=== PATIENT | female | born 1950 | race Caucasian/White ===

== ENCOUNTER → 2017-07-22 | Outpatient (CLI) | payer MEDICARE, OTHER | LOC: M.RAD 13:09 | DX: M17.0 Bilateral primary osteoarthritis of knee (principal); M25.761 Osteophyte, right knee; M25.762 Osteophyte, left knee ==

== ENCOUNTER → 2017-10-10 | Outpatient (CLI) | payer MEDICARE, OTHER | LOC: M.RAD 14:20 | DX: Z12.31 Encounter for screening mammogram for malignant neoplasm of breast (principal) ==

== ENCOUNTER → 2017-10-23 | Outpatient (CLI) | payer MEDICARE, OTHER | LOC: M.RAD 13:28 | DX: Z13.820 Encounter for screening for osteoporosis (principal); Z78.0 Asymptomatic menopausal state ==

== ENCOUNTER → 2018-02-19 | Emergency (ER) | payer MEDICARE, OTHER ==
[~2018-02-19] VITALS: Ht 167.6 cm; Wt 77.1 kg
[~2018-02-19] MED LIST: ALLEGRA ALLERG180 MG PO; ASPIR 8181 MG PO; COLESTIPOL HCL1 G1 PO; ESTROVEN 155 M155 MG PO; LISINOPRIL10 MG PO; NORCO 5-325 TA1 EACH PO; TUMS PO; VITAMIN D3400 UNIT PO; ZOFRAN ODT4 MG PO
[2018-02-19 18:49] VITALS: BP 148/81
== END ==
LOC: M.ERS 16:40
DX: R04.0 Epistaxis (principal); Z88.8 Allergy status to other drugs, medicaments and biological substances

== ENCOUNTER → 2018-11-20 | Outpatient (CLI) | payer MEDICARE, OTHER | LOC: M.RAD 14:56 | DX: Z12.31 Encounter for screening mammogram for malignant neoplasm of breast (principal) ==

== ENCOUNTER → 2019-12-21 | Outpatient (CLI) | payer MEDICARE, OTHER | LOC: M.RAD 12-16 15:10 | PROVIDERS: ATTEND Family Medicine | DX: Z12.31 Encounter for screening mammogram for malignant neoplasm of breast (principal) ==

== ENCOUNTER → 2020-06-21 | Outpatient (CLI) | payer MEDICARE, OTHER ==
--- NOTE | 2020-06-23 09:26 | TST ---
[place] [address] T[employer]MI[facility] STRESS TEST Name: AURORA FRAZIER Room: [facility]#: [id number] Admission: 06/21/20 Attend Phys: Dasha Cloud DO Discharge: Date of : 46 Date of Service: 06/21/20 1647 Report #: [id number] THIS REPORT FOR: cc: Dasha Cloud Maggie M. DO Liston, Michael J. MD [facility] ~ DOC #: [id number] cc: Dasha Watson MD DATE OF SERVICE: 06/21/2020 TEST: Standard Cortez protocol exercise stress test. INDICATION: Dyspnea, palpitations, chronic fatigue, prediabetes and pending surgery. CARDIAC RISK FACTORS: Age greater than 55, hyperlipidemia, hypertension, family history of coronary artery disease. CARDIAC MEDICATIONS: Lisinopril, Livalo, colestipol. The patient exercised per standard Cortez protocol for a total of 4 minutes and 59 seconds. The patient achieved 120% of maximum predicted heart rate and then energy expenditure equivalent to 7.03 METs. The resting heart rate was 67 beats per minute with a resting blood pressure of 155/93 mmHg. Peak heart rate was 179 beats per minute with a peak stress blood pressure of 219/94 mmHg. Recovery heart rate was 94 beats per minute with recovery blood pressure of 156/84 mmHg. Exercise was stopped due to achievement of target heart rate. The patient denied any significant chest discomfort with exercise. The baseline 12-lead EKG shows sinus rhythm without significant ST segment or T-wave abnormality. EKGs obtained during and post-exercise shows sinus rhythm and sinus tachycardia with no significant ST segment or T-wave changes when compared to baseline. There were occasional unifocal premature ventricular contractions noted during and post-exercise. IMPRESSION: 1. Clinical response: Nonischemic. 2. Electrocardiographic response: Nonischemic. CONCLUSION: This standard Cortez protocol exercise stress test shows no EKG or clinical evidence of stress-induced ischemia. This [place] [address] TREADMILL STRESS TEST Name: AURORA FRAZIER Room: [facility]#: [id number] Admission: 06/21/20 Attend Phys: Dasha Cloud DO Discharge: Date of : 46 Date of Service: 06/21/201646 Report #: [id number] MD JESSEE Barone/CINTHIA <ELECTRONICALLY SIGNED> By: Stanford Watson MD, [facility] 06/23/20 0926 1647 14 Stanford Watson MD, FACC /nt
== END ==
LOC: M.CRD 14:32
PROVIDERS: ATTEND Family Medicine
DX: R06.02 Shortness of breath (principal); R73.03 Prediabetes